=== PATIENT | male | born 1965 | race Two or more races ===

== ENCOUNTER 2023-03-17 19:08 | Emergency (ER) | payer OTHER ==
[~2023-03-17] VITALS: Ht 177.8 cm; Wt 111.1 kg
[2023-03-17] MEDS ORDERED: VALSART (19:24)
[2023-03-17] MEDS ORDERED: CHILDREN'S ASPI81 MG (19:24)
[2023-03-17] MEDS ORDERED: EZALLOR SPRINKLE5 MG PO (19:24)
[2023-03-17] MEDS ORDERED: JARDIANCE10 MG PO (19:24)
[2023-03-17] MEDS ORDERED: B COMPLEX1 EACH PO (19:24)
[2023-03-17] MEDS ORDERED: JANUMET 50-1,01 EACH PO (19:24)
[2023-03-17] MEDS ORDERED: LANTUS SOL100 UNIT/1 SQ (19:25)
[2023-03-17] MEDS ORDERED: FENOFIBRATE50 MG (19:25)
[2023-03-17] MEDS ORDERED: TIROSINT13 MCG (19:25)
[2023-03-17] MEDS ORDERED: AMLODIPINE-OLM1 EAC2 (19:25)
[2023-03-17] MEDS ORDERED: DICLOFENAC SODI75 MG PO (21:10)
[2023-03-17] MEDS ORDERED: NORFLEX100MG PO (21:10)
== END 2023-03-17 21:59 | disposition home or self-care (01) ==
LOC: ER 19:08
DX: S59.802A Other specified injuries of left elbow, initial encounter (principal); V29.99XA Rider (driver) (passenger) of other motorcycle injured in unspecified traffic accident, initial encounter; Y93.55 Activity, bike riding; Y92.413 State road as the place of occurrence of the external cause; S79.812A Other specified injuries of left hip, initial encounter; S29.8XXA Other specified injuries of thorax, initial encounter